=== PATIENT | female | born 1985 | race Caucasian/White ===

== ENCOUNTER 2018-09-20 19:00 | Emergency (ER) | payer OTHER, MEDICAID ==
[2018-09-20] MEDS ORDERED: Ketorolac 60 MG/2 ML SDV IM ONE (19:44)
--- NOTE | 2018-09-20 19:57 | EDM.PDOC ---
<Wily Nichole - Last Filed: 09/20/18 19:59> ED HPI GENERAL MEDICAL PROBLEM - General Chief Complaint: Back Pain or Injury Stated Complaint: PT HURT BACK Time Seen by Provider: 09/20/18 19:19 - History of Present Illness INITIAL COMMENTS - FREE TEXT/NARRATIVE: HISTORY AND PHYSICAL: History of present illness: 3-year-old female presents to the emergency department for the evaluation of the lower back pain. She has no significant history of back surgery or back pain. She reported she slipped at work and caught herself before she fell to the ground. She has noticed right lower back pain which radiates to her left lower back with activity. She denies any numbness or tingling to her legs. She has not lost bowel or bladder control. She denies any systemic condition such as fevers or chills or weight loss. She has attempted to treat her for a 4/10 sharp shooting back pain with warm soaks, ibuprofen & Salonpas. The patient is not anticoagulated nor did she hit her head. The patient denies urinary frequency urgency or dysuria. Review of systems: As per history of present illness and below otherwise all systems reviewed and negative. Past medical history: As per history of present illness and as reviewed below otherwise noncontributory. Surgical history: As per history of present illness and as reviewed below otherwise noncontributory. Social history: No reported history of drug or alcohol abuse. Family history: As per history of present illness and as reviewed below otherwise noncontributory. Physical exam: HEENT: Atraumatic, normocephalic, pupils reactive, negative for conjunctival pallor or scleral icterus, mucous membranes moist, throat clear, neck supple, nontender, trachea midline. Lungs: Clear to auscultation, breath sounds equal bilaterally, chest nontender. Heart: S1S2, regular, negative for clicks, rubs, or JVD. Abdomen: Soft, nondistended, nontender. Negative for masses or hepatosplenomegaly. Negative for costovertebral tenderness. Pelvis: Stable nontender. Genitourinary: Deferred. Rectal: Deferred. Extremities: Atraumatic, negative for cords or calf pain. Neurovascular unremarkable. Neuro: Awake, alert, oriented. Cranial nerves II through XII unremarkable. Cerebellum unremarkable. Motor and sensory unremarkable throughout. Exam nonfocal. Spine: Upon palpation to the patient's spine there is no bony step-offs or ridges. When palpating over the lower lumbar area the patient reports that she noticed her pain lateral to her lumbar spine area is not over the bony prominence. There is no obvious deformities or ecchymosis present. The patients lumbar pain is reproducible with a straight leg test. Diagnostics: 3 view lumbar xary [employer]rapeutics: Toradol Flexeril Impression: Lower lumbar strain Plan: At the present time it appears the patient has endured a lower lumbar strain. We have offered the patient's x-ray imaging of the lower back to ensure there is no fracture present. She is in agreement for x-ray films. She is to continue her pxua-dwj-wvrusgw treatment of ibuprofen warm packs and salon positive. He will be sent home with a prescription for Flexeril. She is to follow up with her primary care provider if her pain persists this. With the patient that she will need to contact her employer to determine if she needs to follow-up with occupational health. She will be given an excuse from for work one. Plan of care was reviewed with both the patient and her they are in agreement. All questions answered. Definitive disposition and diagnosis as appropriate pending reevaluation and review of above. 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: Musculoskeletal History: Reports: None Neurological History: Reports: None Psychiatric History: Reports: None Endocrine/Metabolic History: Reports: Diabetes, Gestational Hematologic History: Reports: None Immunologic History: Reports: None Oncologic (Cancer) History: Reports: None Dermatologic History: Reports: None - Infectious Disease History Infectious Disease History: Reports: Chicken Pox - Past Surgical History Head Surgeries/Procedures: Reports: None HEENT Surgical History: Reports: None Cardiovascular Surgical History: Reports: None Respiratory Surgical History: Reports: None GI Surgical History: Reports: Cholecystectomy Female Surgical History: Reports: Tubal Ligation Endocrine Surgical History: Reports: None Neurological Surgical History: Reports: None Musculoskeletal Surgical History: Reports: Amputation Oncologic Surgical History: Reports: None Dermatological Surgical History: Reports: None Social & Family History - Family History Psychiatric: Reports: Autism Endocrine/Metabolic: Reports: Diabetes, type II Oncologic: Reports: Ovarian, Uterine - Tobacco Use Smoking Status *Q: Never Smoker Second Hand Smoke Exposure: No - Caffeine Use Caffeine Use: Reports: Coffee - Recreational Drug Use Recreational Drug Use: No Course - Vital Signs Last Recorded V/S: Last Vital Signs Temp 36.1 C 09/20/18 19:13 Pulse 62 09/20/18 19:13 Resp 18 09/20/18 19:13 BP 131/62 09/20/18 19:13 Pulse Ox 98 09/20/18 19:13 - Orders/Labs/Meds Meds: Medications Discontinued Medications Generic Name Dose Route Start Last Admin Trade Name Freq PRN Reason Stop Dose Admin Ketorolac Tromethamine 60 mg 09/20/18 19:44 09/20/18 19:53 Toradol IM 09/20/18 19:45 60 mg ONETIME ONE Administration Orphenadrine Citrate 60 mg 09/20/18 19:44 09/20/18 19:56 Norflex IM 09/20/18 19:45 60 mg ONETIME ONE Administration Departure - Departure Disposition: Home, Self-Care 01 Clinical Impression: Lumbar back sprain Qualifiers: Encounter type: initial encounter Qualified Code(s): S33.5XXA - Sprain of ligaments of lumbar spine, initial encounter - Discharge Information Referrals: PCP,None [Primary Care Provider] - Forms: ED Department Discharge Additional Instructions: The following information is given to patients seen in the emergency department who are being discharged to home. This information is to outline your options for follow-up care. We provide all patients seen in our emergency department with a follow-up referral. The need for follow-up, as well as the timing and circumstances, are variable depending upon the specifics of your emergency department visit. If you don't have a primary care physician on staff, we will provide you with a referral. We always advise you to contact your personal physician following an emergency department visit to inform them of the circumstance of the visit and for follow-up with them and/or the need for any referrals to a consulting specialist. The emergency department will also refer you to a specialist when appropriate. This referral assures that you have the opportunity for followup care with a specialist. All of these measure are taken in an effort to provide you with optimal care, which includes your followup. Under all circumstances we always encourage you to contact your private physician who remains a resource for coordinating your care. When calling for followup care, please make the office aware that this follow-up is from your recent emergency room visit. If for any reason you are refused follow-up, please contact the [facility] emergency department at and ask to speak to the emergency department charge nurse. [facility] Primary care- [place] [address] Use ice to area for the next 24 hours and then switch to heat. Use over-the- counter Motrin/ibuprofen 600 mg every 6 hours or 800 mg every 8 hours and add the ulcer relaxer as you have been prescribed as needed. Please only take the muscle relaxers when you're at home as it may make you drowsy or sleepy. Please contact your employer for follow-up with occupational health as they dictate and return to ER as needed and as discussed. Follow up with your provider in the clinic as well. <Ness Montana - Last Filed: 09/20/18 20:59> ED HPI GENERAL MEDICAL PROBLEM - History of Present Illness INITIAL COMMENTS - FREE TEXT/NARRATIVE: This is Dr. Montana dictating an addendum note as I'm the supervising physician on this case. I agree with history and physical as above and the patient did not completely fall to the ground but twisted and caught herself. Her pain is localized on the right lumbar area and it does not radiate to her leg and she has no bowel or bladder disturbances. She has tried sjya-bbi-lbpymuy meds and is still concerned and as this occurred at work she has some concerns about that as well. She has a history of a bilateral tubal ligation. Clinically the patient does not mandate x-rays but because this occurred at work she would like to pursue those as a baseline and we have ordered them. This is all musculoskeletal on my exam as there is reproducible pain on palpation of the paraspinals of the lower lumbar area on the right area there are no midline step -offs tenderness defects of the thoracic or lumbar spine. We will give her Toradol and Flexeril and plan on treating with anti-inflammatories and muscle relaxers for home pending the x-ray results ED ROS GENERAL - Review of Systems Review Of Systems: ROS reveals no pertinent complaints other than HPI. ED EXAM,LOWER BACK PAIN/INJURY - Physical Exam Exam: See Below (See dictation) Departure - Departure Time of Disposition: 20:58 Condition: Good
--- NOTE | 2018-09-20 20:49 | CR ---
HISTORY: Pain after slipping and catching herself. COMPARISON: None available. FINDINGS: The lumbar spine was examined with AP, lateral, and lateral spot views for a total of three views. There is no sign of fracture or subluxation. The vertebral bodies are normal in height and they are in anatomic alignment. The disc spaces are normal in height as well. The visualized bony pelvis and bowel gas pattern are normal in appearance. Clips are seen in the right upper quadrant consistent with cholecystectomy. Clips are seen in the pelvis on the left consistent with tubal ligation. IMPRESSION: Normal lumbar spine. Dictated by Panchito Nguyen MD @ Sep 20 2018 8:46PM Signed by Dr. Panchito Nguyen @ Sep 20 2018 8:48PM
[2018-09-20 22:32] VITALS: BP 105/63
== END 2018-09-20 21:10 | disposition home or self-care (01) ==
LOC: MW.ED 19:00
DX: S33.5XXA Sprain of ligaments of lumbar spine, initial encounter (principal); S39.012A Strain of muscle, fascia and tendon of lower back, initial encounter; Z88.6 Allergy status to analgesic agent; Z79.899 Other long term (current) drug therapy; W01.0XXA Fall on same level from slipping, tripping and stumbling without subsequent striking against object, initial encounter
CPT/HCPCS: 72100; 96372; 99283; J1885; J2360

== ENCOUNTER 2019-03-02 19:42 | Emergency (ER) | payer MEDICAID, OTHER ==
[2019-03-02] MEDS ORDERED: Acetaminophen 325 MG Tab PO ONE (20:36)
[2019-03-02] MEDS ORDERED: Ondansetron 4 MG/2 ML SDV IVPUSH ONE ×2 (20:36→23:00)
[2019-03-02] MEDS ORDERED: Morphine 10 MG/ML Syringe IVPUSH ONE (21:02)
[2019-03-02 21:33] LABS: BLOOD UREA NITROGEN,BUN 15 mg/dL (7.0-18.0); CARBON DIOXIDE,CO2 24.9 mmol/L (21.0-32.0); CHLORIDE,CL 104 mmol/L (98-107); GLUCOSE RANDOM 94 mg/dL (74-106); POTASSIUM,K 3.8 mmol/L (3.5-5.1); SODIUM,NA 140 mmol/L (136-145)
--- NOTE | 2019-03-02 21:33 | EDM.PDOC ---
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 Presents with chief complaint of right lower quadrant abdominal pain. Onset of pain was last night when the pain started abruptly and woke her from sleep. Pain has been consistent since then and has not fluctuated in intensity. Patient reports associated nausea but no vomiting. Patient has decreased appetite and is only in several breadsticks around dinnertime today. Patient denies any fevers, chills, diarrhea, urinary symptoms. Patient denies any prior history of ovarian cyst. Patient denies any complication of pregnancies. Patient last was several years ago. Patient denies any vaginal discharge or vaginal bleeding. Patient states last menstrual period was beginning of January. In addition to that documented in the HPI above, the additional ROS was obtained : Constitutional: Denies fevers or chills Eyes: Denies vision changes ENMT: Denies sore throat CV: Denies chest pain Resp: Denies SOB GI: Denies vomiting or diarrhea : Denies painful urination MSK: Denies recent trauma Skin: Denies new rashes Neuro: Denies new numbness or tingling or weakness Endocrine: Denies unexpected weight loss Heme: Denies bleeding disorders I have reviewed the triage vital signs Const: Well nourished, well developed, appears stated age Eyes: PERRL, no conjunctival injection HENT: NCAT, Neck supple without meningismus CV: RRR, Warm, well-perfused extremities RESP: CTAB, Unlabored respiratory effort GI: Tenderness to palpation of the right lower quadrant, no guarding, soft abdomen, non-distended, no masses MSK: No gross deformities appreciated : BHAVANA Moreira present for exam. External exam within normal limits. Internal exam demonstrates no discharge. Cervical loss is closed. Patient has no CMT or adnexal tenderness Skin: Warm, dry. 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 Sensation and motor function of extremities grossly intact. 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 History: Reports: None Neurological History: Reports: None Psychiatric History: Reports: None Endocrine/Metabolic History: Reports: Diabetes, Gestational Hematologic History: Reports: None Immunologic History: Reports: None Oncologic (Cancer) History: Reports: None Dermatologic History: Reports: None - Infectious Disease History Infectious Disease History: Reports: Chicken Pox - Past Surgical History Head Surgeries/Procedures: Reports: None HEENT Surgical History: Reports: None Cardiovascular Surgical History: Reports: None Respiratory Surgical History: Reports: None GI Surgical History: Reports: Cholecystectomy Female Surgical History: Reports: Tubal Ligation Endocrine Surgical History: Reports: None Neurological Surgical History: Reports: None Musculoskeletal Surgical History: Reports: Amputation Oncologic Surgical History: Reports: None Dermatological Surgical History: Reports: None Social & Family History - Family History Family Medical History: Noncontributory Psychiatric: Reports: Autism Endocrine/Metabolic: Reports: Diabetes, type II Oncologic: Reports: Ovarian, Uterine - Tobacco Use Smoking Status *Q: Never Smoker - Caffeine Use Caffeine Use: Reports: Coffee - Recreational Drug Use Recreational Drug Use: No ED ROS GENERAL - Review of Systems Review Of Systems: See Below ED EXAM, GI/ABD - Physical Exam Exam: See Below Course - Vital Signs Last Recorded V/S: Last Vital Signs Temp 36.2 C 03/02/19 19:59 Pulse 62 03/03/19 00:23 Resp 16 03/03/19 00:23 BP 124/77 03/03/19 00:23 Pulse Ox 99 03/03/19 00:23 - Orders/Labs/Meds Orders: Active Orders 24 hr Category Date Time Status CHLAMYDIA AND GONORRHEA BY TMA Stat Lab 03/03/19 00:25 Received Labs: Laboratory Tests 03/02/19 03/02/19 03/02/19 Range/Units 20:44 21:00 21:00 WBC 10.09 (4.0-11.0) K/uL RBC 4.83 (4.30-5.90) M/uL Hgb 13.7 (12.0-16.0) g/dL Hct 40.0 (36.0-46.0) % MCV 82.8 (80.0-98.0) fL MCH 28.4 (27.0-32.0) pg MCHC 34.3 (31.0-37.0) g/dL RDW Std Deviation 42.7 (28.0-62.0) fl RDW Coeff of Sana 14 (11.0-15.0) % Plt Count 311 (150-400) K/uL MPV 10.00 (7.40-12.00) fL Neut % (Auto) 65.8 (48.0-80.0) % Lymph % (Auto) 25.5 (16.0-40.0) % [place] % (Auto) 7.6 (0.0-15.0) % Eos % (Auto) 1.0 (0.0-7.0) % Baso % (Auto) 0.1 (0.0-1.5) % Neut # (Auto) 6.6 H (1.4-5.7) K/uL Lymph # (Auto) 2.6 H (0.6-2.4) K/uL [place] # (Auto) 0.8 (0.0-0.8) K/uL Eos # (Auto) 0.1 (0.0-0.7) K/uL Baso # (Auto) 0.0 (0.0-0.1) K/uL Nucleated RBC % 0.0 /100WBC Nucleated RBCs # 0 K/uL Sodium 140 (136-145) mmol/L Potassium 3.8 (3.5-5.1) mmol/L Chloride 104 (98-107) mmol/L Carbon Dioxide 24.9 (21.0-32.0) mmol/L BUN 15 (7.0-18.0) mg/dL Creatinine 0.8 (0.6-1.0) mg/dL Est Cr Clr Drug Dosing 92.76 mL/min Estimated GFR (MDRD) > 60.0 ml/min Glucose 94 (74-106) mg/dL Calcium 9.3 (8.5-10.1) mg/dL Total Bilirubin 0.4 (0.2-1.0) mg/dL AST 26 (15-37) IU/L ALT 37 (14-63) IU/L Alkaline Phosphatase 69 (46-116) U/L Total Protein 8.2 (6.4-8.2) g/dL Albumin 4.0 (3.4-5.0) g/dL Globulin 4.2 H (2.6-4.0) g/dL Albumin/Globulin Ratio 1.0 (0.9-1.6) HCG, Quant 1.0 mIU/mL Urine Color YELLOW Urine Appearance SLT CLOUDY Urine pH 6.5 (5.0-8.0) Ur Specific [place] >= 1.030 (1.001-1.035) Urine Protein NEGATIVE (NEGATIVE) mg/dL Urine Glucose (UA) NEGATIVE (NEGATIVE) mg/dL Urine Ketones NEGATIVE (NEGATIVE) mg/dL Urine Occult Blood NEGATIVE (NEGATIVE) Urine Nitrite NEGATIVE (NEGATIVE) Urine Bilirubin NEGATIVE (NEGATIVE) Urine Urobilinogen 0.2 (<2.0) EU/dL Ur Leukocyte Esterase NEGATIVE (NEGATIVE) Meds: Medications Discontinued Medications Generic Name Dose Route Start Last Admin Trade Name Erica PRN Reason Stop Dose Admin Acetaminophen 650 mg 03/02/19 20:36 03/02/19 21:14 Tylenol PO 03/02/19 20:37 Not Given NOW ONE Ketorolac Tromethamine 15 mg 03/03/19 00:34 Toradol IVPUSH 03/03/19 00:35 ONETIME ONE Morphine Sulfate 6 mg 03/02/19 21:02 03/02/19 21:11 Morphine IVPUSH 03/02/19 21:03 6 mg ONETIME ONE Administration Ondansetron HCl 4 mg 03/02/19 20:36 03/02/19 21:08 Zofran IVPUSH 03/02/19 20:37 4 mg ONETIME ONE Administration Ondansetron HCl 4 mg 03/02/19 23:00 03/02/19 23:07 Zofran IVPUSH 03/02/19 23:01 4 mg ONETIME ONE Administration Departure - Departure Time of Disposition: 00:39 Disposition: Home, Self-Care 01 Clinical Impression: Pain in pelvis - Discharge Information Prescriptions: Naproxen [Naprosyn] 375 mg PO BID #30 tab Instructions: Pelvic Pain, Female, Malb-ye-Bwmw Referrals: Maria Fernanda Farris NP [Primary Care Provider] - Forms: ED Department Discharge Additional Instructions: The following information is given to patients seen in the emergency department who are being discharged to home. This information is to outline your options for follow-up care. We provide all patients seen in our emergency department with a follow-up referral. The need for follow-up, as well as the timing and circumstances, are variable depending upon the specifics of your emergency department visit. If you don't have a primary care physician on staff, we will provide you with a referral. We always advise you to contact your personal physician following an emergency department visit to inform them of the circumstance of the visit and for follow-up with them and/or the need for any referrals to a consulting specialist. The emergency department will also refer you to a specialist when appropriate. This referral assures that you have the opportunity for follow-up care with a specialist. All of these measure are taken in an effort to provide you with optimal care, which includes your follow-up. Under all circumstances we always encourage you to contact your private physician who remains a resource for coordinating your care. When calling for follow-up care, please make the office aware that this follow-up is from your recent emergency room visit. If for any reason you are refused follow-up, please contact the [facility] Emergency Department at and asked to speak to the emergency department charge nurse. Sepsis Event Note - Evaluation Sepsis Screening Result: No Definite Risk - Focused Exam Vital Signs: Vital Signs Temp Pulse Resp BP Pulse Ox 03/03/19 00:23 62 16 124/77 99 03/02/19 23:00 63 18 115/63 98 03/02/19 22:00 63 16 116/69 99 03/02/19 21:14 60 18 121/76 98 03/02/19 19:59 36.2 C 65 20 147/77 H 97 Date Exam was Performed: 03/03/19 Time Exam was Performed: 00:37 - My Orders Last 24 Hours: My Active Orders 03/03/19 00:25 CHLAMYDIA AND GONORRHEA BY TMA Stat - Assessment/Plan Last 24 Hours: My Active Orders 03/03/19 00:25 CHLAMYDIA AND GONORRHEA BY TMA Stat Assessment:: She is 34-year-old female presenting with right lower quadrant abdominal pain. Patient pelvic exam not consistent with ovarian pathology or HUMAN PROJECTILE pathology at this time. Urine studies are negative for infection. CBC does not demonstrate leukocytosis. However, given the intensity of the patient's pain and the location of the right lower quadrant there is concern about appendicitis. Ever , the CT scan is negative. On my examination CT scan there does demonstrate some pelvic congestion. Ultrasound was ordered and only demonstrates thickening of the endometrial lining. Based on physical exam and history of the patient, there is no concern for sexually transmitted infection or endometritis. A GC test was sent for thoroughness sake. At this point, I think that diagnosis may be endometrial fibroids versus other uterine nonemergent diagnosis. Patient educated on pain control with NSAIDs. 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 I stressed the importance of repeating the ultrasound in the next several weeks. Patient given strict return precautions all questions and addressed and answered and patient agrees with plan
[2019-03-02] MEDS ORDERED: Iopamidol 755 MG/ML 500 ML Multipack Bottle IVPUSH ONE (21:40)
--- NOTE | 2019-03-02 22:32 | CT ---
Indication: Right lower quadrant abdominal pain Technique: Contrast enhanced axial CT imaging through the abdomen and pelvis. 100 mL Isovue 370 contrast agent was administered intravenously. Sagittal and coronal reconstructions are provided. Comparison: None Findings: There is no significant abnormality of the liver, spleen, pancreas, adrenal glands, and kidneys. Cholecystectomy clips are noted. There is normal enhancement of the portal venous system. There is normal caliber of the abdominal aorta. The stomach and duodenum are unremarkable. There are no abnormally dilated small bowel loops. The appendix is noninflamed. There is no colonic wall thickening. No inflammatory changes are demonstrated in the mesentery. There is no abdominal lymphadenopathy. A small amount of nonspecific free fluid is noted in the pelvis. The visualized osseous structures are unremarkable. The included lung bases are clear. Impression: No acute process demonstrated in the abdomen and pelvis. No evidence of acute appendicitis. Please note that all CT scans at this facility use dose modulation, iterative reconstruction, and/or weight-based dosing when appropriate to reduce radiation dose to as low as reasonably achievable. Dictated by Cathie Dowell MD @ Mar 02 2019 10:22PM Signed by Dr. Cathie Dowell @ Mar 02 2019 10:30PM
--- NOTE | 2019-03-03 00:07 | US ---
INDICATION: Right lower quadrant pain TECHNIQUE: Ultrasound pelvis transabdominal and transvaginal. Endovaginal imaging was performed to better visualize the endometrium and ovaries. Real-time hurtado scale sonographic images with spectral and color Doppler imaging of the ovaries were obtained. COMPARISON: CT today FINDINGS: Uterus: 8.9 x 5.3 x 6.6 cm. Trace fluid is present within the uterine cavity. Normal echotexture of the myometrium noted with no masses are seen. Endometrium: 18 mm. A small nabothian cyst is present near the cervix. Right ovary: 3 x 2.3 x 2 cm. A thick walled cyst is present within the right ovary measuring 1 x 1.5 cm. Unremarkable color and venous flow is seen within the right ovary. Left ovary: 3 x 1.9 x 2 cm. The left ovary is normal in appearance and echotexture. Arterial blood flow seen within the left ovary. Cul-de-sac: A small amount of pelvic ascites is seen. IMPRESSION: 1. Lobulated thickening of the endometrium is present with a small amount of fluid in the uterine cavity. Findings are nonspecific and follow-up ultrasound in 3-4 weeks is recommended to document resolution. Dictated by Jimi Jenkins MD @ 03/03/2019 12:05:10 AM Dictated by: Jimi Jenkins MD @ 03/03/2019 00:05:16 (Electronically Signed)
[2019-03-03] MEDS ORDERED: Ketorolac 30 MG/ML SDV IVPUSH ONE (00:34)
[2019-03-03 00:43] VITALS: BP 145/99; PULSE 67
== END 2019-03-03 01:00 | disposition home or self-care (01) ==
LOC: MW.ED 19:42
DX: R10.2 Pelvic and perineal pain (principal); Z90.49 Acquired absence of other specified parts of digestive tract; Z88.6 Allergy status to analgesic agent; Z98.51 Tubal ligation status
CPT/HCPCS: 36415; 74177; 76856; 80053; 81003; 84702; 85025; 87491; 87591; 96374; 96375; 96376; 99284; J1885; J2270; J2405; 99283

== ENCOUNTER 2020-03-09 04:05 | Emergency (ER) | payer MEDICAID ==
[2020-03-09] MEDS ORDERED: Ketorolac 15 MG/ML SDV IVPUSH ONE (04:28)
--- NOTE | 2020-03-09 04:34 | EDM.PDOC ---
ED HPI GENERAL MEDICAL PROBLEM - General Chief Complaint: Abdominal Pain Stated Complaint: RIGHT OVARIAN CYST- SHOOTING PAIN Time Seen by Provider: 03/09/20 04:17 Source of Information: Reports: Patient History Limitations: Reports: No Limitations - History of Present Illness INITIAL COMMENTS - FREE TEXT/NARRATIVE: She is a 35-year-old female who presents today for right lower quadrant pain. Patient states pain has been present for the past 2 weeks. Patient states she has a history of cyst and feels similar to that pain. Patient states she came in today because she woke up from sleep with this intense pain shooting down to her leg. Patient has some nausea but still able tolerate p.o. patient denies any urinary symptoms or diarrhea. Patient states pain is not made better with any event and is made worse when she applies ice then heat and vice versa. 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 History: Reports: None Neurological History: Reports: None Psychiatric History: Reports: None Endocrine/Metabolic History: Reports: Diabetes, Gestational Hematologic History: Reports: None Immunologic History: Reports: None Oncologic (Cancer) History: Reports: None Dermatologic History: Reports: None - Infectious Disease History Infectious Disease History: Reports: Chicken Pox - Past Surgical History Head Surgeries/Procedures: Reports: None HEENT Surgical History: Reports: None Cardiovascular Surgical History: Reports: None Respiratory Surgical History: Reports: None GI Surgical History: Reports: Cholecystectomy Female Surgical History: Reports: Tubal Ligation Endocrine Surgical History: Reports: None Neurological Surgical History: Reports: None Musculoskeletal Surgical History: Reports: Amputation Oncologic Surgical History: Reports: None Dermatological Surgical History: Reports: None Social & Family History - Family History Family Medical History: No Pertinent Family History Psychiatric: Reports: Autism Endocrine/Metabolic: Reports: Diabetes, type II Oncologic: Reports: Ovarian, Uterine - Tobacco Use Tobacco Use Status *Q: Never Tobacco User - Caffeine Use Caffeine Use: Reports: None - Recreational Drug Use Recreational Drug Use: No ED ROS GENERAL - Review of Systems Review Of Systems: See Below Constitutional: Reports: No Symptoms HEENT: Reports: No Symptoms Respiratory: Reports: No Symptoms Cardiovascular: Reports: No Symptoms Endocrine: Reports: No Symptoms GI/Abdominal: Reports: Abdominal Pain : Reports: No Symptoms Musculoskeletal: Reports: No Symptoms Skin: Reports: No Symptoms Neurological: Reports: No Symptoms Psychiatric: Reports: No Symptoms Hematologic/Lymphatic: Reports: No Symptoms Immunologic: Reports: No Symptoms ED EXAM, GENERAL - Physical Exam Exam: See Below Exam Limited By: No Limitations General Appearance: Alert Respiratory/Chest: No Respiratory Distress, Lungs Clear Cardiovascular: Regular Rate, Rhythm GI/Abdominal: Normal Bowel Sounds, Soft, No Organomegaly, Tender Neurological: Alert, Oriented, Normal Cognition Course - Vital Signs Last Recorded V/S: Last Vital Signs Temp 96.5 F L 03/09/20 04:10 Pulse 60 03/09/20 05:25 Resp 18 03/09/20 05:25 BP 119/62 03/09/20 05:25 Pulse Ox 96 03/09/20 05:25 - Orders/Labs/Meds Labs: Laboratory Tests 03/09/20 03/09/20 03/09/20 Range/Units 04:20 04:20 05:10 WBC 12.24 H (4.0-11.0) K/uL RBC 4.84 (4.30-5.90) M/uL Hgb 13.1 (12.0-16.0) g/dL Hct 40.2 (36.0-46.0) % MCV 83.1 (80.0-98.0) fL MCH 27.1 (27.0-32.0) pg MCHC 32.6 (31.0-37.0) g/dL RDW Std Deviation 44.8 (28.0-62.0) fl RDW Coeff of Sana 15 (11.0-15.0) % Plt Count 382 (150-400) K/uL MPV 10.00 (7.40-12.00) fL Neut % (Auto) 69.9 (48.0-80.0) % Lymph % (Auto) 23.2 (16.0-40.0) % [place] % (Auto) 5.6 (0.0-15.0) % Eos % (Auto) 1.1 (0.0-7.0) % Baso % (Auto) 0.2 (0.0-1.5) % Neut # (Auto) 8.6 H (1.4-5.7) K/uL Lymph # (Auto) 2.8 H (0.6-2.4) K/uL [place] # (Auto) 0.7 (0.0-0.8) K/uL Eos # (Auto) 0.1 (0.0-0.7) K/uL Baso # (Auto) 0.0 (0.0-0.1) K/uL Nucleated RBC % 0.0 /100WBC Nucleated RBCs # 0 K/uL Sodium 135 L (136-145) mmol/L Potassium 3.6 (3.5-5.1) mmol/L Chloride 100 (98-107) mmol/L Carbon Dioxide 22.1 (21.0-32.0) mmol/L BUN 13 (7.0-18.0) mg/dL Creatinine 1.0 (0.6-1.0) mg/dL Est Cr Clr Drug Dosing 73.51 mL/min Estimated GFR (MDRD) > 60.0 ml/min Glucose 96 (74-106) mg/dL Calcium 9.3 (8.5-10.1) mg/dL Total Bilirubin 0.4 (0.2-1.0) mg/dL AST 17 (15-37) IU/L ALT 29 (14-63) IU/L Alkaline Phosphatase 85 (46-116) U/L Total Protein 8.4 H (6.4-8.2) g/dL Albumin 3.9 (3.4-5.0) g/dL Globulin 4.5 H (2.6-4.0) g/dL Albumin/Globulin Ratio 0.9 (0.9-1.6) Lipase 126 (73-393) U/L Urine Color YELLOW Urine Appearance SLT CLOUDY Urine pH 5.5 (5.0-8.0) Ur Specific [place] 1.015 (1.001-1.035) Urine Protein NEGATIVE (NEGATIVE) mg/dL Urine Glucose (UA) NEGATIVE (NEGATIVE) mg/dL Urine Ketones NEGATIVE (NEGATIVE) mg/dL Urine Occult Blood TRACE-LYSED H (NEGATIVE) Urine Nitrite NEGATIVE (NEGATIVE) Urine Bilirubin NEGATIVE (NEGATIVE) Urine Urobilinogen 0.2 (<2.0) EU/dL Ur Leukocyte Esterase SMALL H (NEGATIVE) Urine RBC 0-3 (0-2/HPF) Urine WBC 1-4 (0-5/HPF) Ur Epithelial Cells FEW (NONE-FEW) Urine Bacteria FEW (NEGATIVE) Urine Mucus LIGHT (NONE-MOD) Urine HCG, Qual (NEGATIVE) 03/09/20 Range/Units 05:26 WBC (4.0-11.0) K/uL RBC (4.30-5.90) M/uL Hgb (12.0-16.0) g/dL Hct (36.0-46.0) % MCV (80.0-98.0) fL MCH (27.0-32.0) pg MCHC (31.0-37.0) g/dL RDW Std Deviation (28.0-62.0) fl RDW Coeff of Sana (11.0-15.0) % Plt Count (150-400) K/uL MPV (7.40-12.00) fL Neut % (Auto) (48.0-80.0) % Lymph % (Auto) (16.0-40.0) % [place] % (Auto) (0.0-15.0) % Eos % (Auto) (0.0-7.0) % Baso % (Auto) (0.0-1.5) % Neut # (Auto) (1.4-5.7) K/uL Lymph # (Auto) (0.6-2.4) K/uL [place] # (Auto) (0.0-0.8) K/uL Eos # (Auto) (0.0-0.7) K/uL Baso # (Auto) (0.0-0.1) K/uL Nucleated RBC % /100WBC Nucleated RBCs # K/uL Sodium (136-145) mmol/L Potassium (3.5-5.1) mmol/L Chloride (98-107) mmol/L Carbon Dioxide (21.0-32.0) mmol/L BUN (7.0-18.0) mg/dL Creatinine (0.6-1.0) mg/dL Est Cr Clr Drug Dosing mL/min Estimated GFR (MDRD) ml/min Glucose (74-106) mg/dL Calcium (8.5-10.1) mg/dL Total Bilirubin (0.2-1.0) mg/dL AST (15-37) IU/L ALT (14-63) IU/L Alkaline Phosphatase (46-116) U/L Total Protein (6.4-8.2) g/dL Albumin (3.4-5.0) g/dL Globulin (2.6-4.0) g/dL Albumin/Globulin Ratio (0.9-1.6) Lipase (73-393) U/L Urine Color Urine Appearance Urine pH (5.0-8.0) Ur Specific [place] (1.001-1.035) Urine Protein (NEGATIVE) mg/dL Urine Glucose (UA) (NEGATIVE) mg/dL Urine Ketones (NEGATIVE) mg/dL Urine Occult Blood (NEGATIVE) Urine Nitrite (NEGATIVE) Urine Bilirubin (NEGATIVE) Urine Urobilinogen (<2.0) EU/dL Ur Leukocyte Esterase (NEGATIVE) Urine RBC (0-2/HPF) Urine WBC (0-5/HPF) Ur Epithelial Cells (NONE-FEW) Urine Bacteria (NEGATIVE) Urine Mucus (NONE-MOD) Urine HCG, Qual NEGATIVE (NEGATIVE) Meds: Medications Discontinued Medications Generic Name Dose Route Start Last Admin Trade Name Freq PRN Reason Stop Dose Admin Iopamidol 100 ml 03/09/20 05:16 03/09/20 05:16 Isovue Multipack-370 (76%) IVPUSH 03/09/20 05:17 100 ml ONETIME STA Administration Ketorolac Tromethamine 15 mg 03/09/20 04:28 03/09/20 04:37 Toradol IVPUSH 03/09/20 04:29 15 mg ONETIME ONE Administration - Re-Assessments/Exams Free Text/Narrative Re-Assessment/Exam: 03/09/20 06:18 Patient scan is negative does not show any concerning findings or cause of patient's pain. At the receiving Toradol patient pain is improved patient will be discharged home can follow-up with primary physician as outpatient. Departure - Departure Time of Disposition: 06:19 Disposition: Home, Self-Care 01 Condition: Good Clinical Impression: Abdominal pain - Discharge Information *PRESCRIPTION DRUG MONITORING PROGRAM REVIEWED*: Not Applicable *COPY OF PRESCRIPTION DRUG MONITORING REPORT IN PATIENT VIRGIL: Not Applicable Instructions: Abdominal Pain, Adult, [id number] Referrals: Brenton,Maria Fernanda A, MARKETING SUPPORT SPECIALIST [Primary Care Provider] - Forms: ED Department Discharge Additional Instructions: The following information is given to patients seen in the emergency department who are being discharged to home. This information is to outline your options for follow-up care. We provide all patients seen in our emergency department with a follow-up referral. The need for follow-up, as well as the timing and circumstances, are variable depending upon the specifics of your emergency department visit. If you don't have a primary care physician on staff, we will provide you with a referral. We always advise you to contact your personal physician following an emergency department visit to inform them of the circumstance of the visit and for follow-up with them and/or the need for any referrals to a consulting specialist. The emergency department will also refer you to a specialist when appropriate. This referral assures that you have the opportunity for follow-up care with a specialist. All of these measure are taken in an effort to provide you with optimal care, which includes your follow-up. Under all circumstances we always encourage you to contact your private physician who remains a resource for coordinating your care. When calling for follow-up care, please make the office aware that this follow-up is from your recent emergency room visit. If for any reason you are refused follow-up, please contact the [facility] Emergency Department at and asked to speak to the emergency department charge nurse. Please follow up with your primary care physician. If you do not have a primary care physician, see below: [facility] [address] [place] [id number] [facility] [address] [place] [id number] Please follow-up with your primary care physician if you have any increased pain nausea vomiting please return to the emergency department. Sepsis Event Note (ED) - Evaluation Sepsis Screening Result: No Definite Risk - Focused Exam Vital Signs: Vital Signs Temp Pulse Resp BP Pulse Ox 03/09/20 05:25 60 18 119/62 96 03/09/20 04:10 96.5 F L 64 18 143/55 H 98 - Assessment/Plan Assessment:: Patient is a 35-year-old female who presents today for right lower quadrant pain. Patient has some pain on examination. Patient also has pain with flexion of the right hip. There is concern for appendicitis. Will obtain labs UA and provide pain control.
[2020-03-09 04:55] LABS: BLOOD UREA NITROGEN,BUN 13 mg/dL (7.0-18.0); CARBON DIOXIDE,CO2 22.1 mmol/L (21.0-32.0); CHLORIDE,CL 100 mmol/L (98-107); GLUCOSE RANDOM 96 mg/dL (74-106); LIPASE 126 U/L (73-393); POTASSIUM,K 3.6 mmol/L (3.5-5.1); SODIUM,NA 135 mmol/L (136-145)
[2020-03-09] MEDS ORDERED: Iopamidol 755 MG/ML 500 ML Multipack Bottle IVPUSH STA (05:16)
[2020-03-09 05:26] VITALS: PULSE 60
--- NOTE | 2020-03-09 06:02 | CT ---
INDICATION: Right lower quadrant pain COMPARISON: March 02, 2019 TECHNIQUE: CT examination of the abdomen and pelvis was performed following the uneventful intravenous administration of 100 cc of Isovue 370. Thin section axial images were obtained from the lung bases through the pubic symphysis. Oral contrast was not administered. Please note that all CT scans at this facility use dose modulation, iterative reconstruction, and/or weight-based dosing when appropriate to reduce radiation dose to as low as reasonably achievable. FINDINGS: LUNG BASES: The lung bases as visualized appear normal.The heart size is normal at the lung bases. LIVER/BILIARY SYSTEM:The liver is normal in size and configuration. There is no focal mass and there is no intra- or extra hepatic biliary ductal dilatation.Gallbladder surgically absent ADRENALS: Normal KIDNEYS, URETERS and BLADDER:The kidneys appear normal. No visible mass, calculus or hydronephrosis. The ureters and bladder as visualized appear normal. SPLEEN:Normal appearance. PANCREAS: Appears normal. RETROPERITONEUM and MESENTERY: There is no mass, adenopathy or aortic aneurysm. GASTROINTESTINAL SYSTEM: There is no evidence of diverticulitis, colitis, mechanical obstruction, or appendicitis. The small bowel as visualized appears normal.No visible etiology for right lower quadrant abdominal pain. PELVIS: No mass, adenopathy or free fluid.Tubal ligation clips identified bilaterally OSSEOUS STRUCTURES and ABDOMINAL WALL: There is an age-appropriate appearance of the osseous structures.No significant abdominal wall defect. OTHER: No free fluid or free air. IMPRESSION: No visible etiology for right lower quadrant abdominal pain. Please note that all CT scans at this facility use dose modulation, iterative reconstruction, and/or weight-based dosing when appropriate to reduce radiation dose to as low as reasonably achievable. Dictated by Leo Sharpe MD @ Mar 09 2020 5:55AM Signed by Dr. Leo Sharpe @ Mar 09 2020 6:00AM
[2020-03-09 06:32] VITALS: BP 103/60
== END 2020-03-09 06:30 | disposition home or self-care (01) ==
LOC: MW.ED 04:05
DX: R10.31 Right lower quadrant pain (principal); Z88.6 Allergy status to analgesic agent
CPT/HCPCS: 36415; 74177; 80053; 81001; 81025; 83690; 85025; 96374; 99284; J1885; Q9967

== ENCOUNTER 2021-02-27 15:31 | Emergency (ER) | payer MEDICAID, OTHER ==
--- NOTE | 2021-02-27 15:33 | EDM.PDOC ---
ED HPI GENERAL MEDICAL PROBLEM - General Stated Complaint: MIGHT HAVE STREP THROAT Time Seen by Provider: 02/27/21 15:31 Source of Information: Reports: Patient History Limitations: Reports: No Limitations - History of Present Illness INITIAL COMMENTS - FREE TEXT/NARRATIVE: HISTORY AND PHYSICAL: History of present illness: The patient is a 36-year-old female who reports to the emergency department for complaints of fever, headache, sore throat and body aches that started yesterday. She did not take anything pwdy-[id number] to treat her discomfort. Patient states that her max fever was 100 F. Patient denies any chills, change in vision, syncope or near syncope. Denies any chest pain, back pain, shortness of breath or cough. Denies any abdominal pain, nausea, vomiting, diarrhea, constipation or dysuria. Has not noted any blood in urine or stool. Patient has been eating and drinking appropriately. Review of systems: As per history of present illness and below otherwise all systems reviewed and negative. Past medical history: As per history of present illness and as reviewed below otherwise noncontributory. Surgical history: As per history of present illness and as reviewed below otherwise noncontributory. Social history: See social history for further information Family history: As per history of present illness and as reviewed below otherwise noncontributory. Physical exam: General: Well developed and well nourished. Alert and orientated x 3. Nontoxic in appearance and in no acute distress. Vital signs are stable and have been reviewed by me. Nursing notes were reviewed. HEENT: Atraumatic, normocephalic, pupils equal and reactive bilaterally, negative for conjunctival pallor or scleral icterus, mucous membranes moist, TMs normal bilaterally, tonsils 1+, neck supple, nontender, trachea midline. No drooling or trismus noted. No meningeal signs. No hot potato voice noted. Lungs: Clear to auscultation bilaterally. No wheezes, rales, or rhonchi. Chest nontender. Normal work of breathing, no accessory muscles used. Heart: S1S2, regular rate and rhythm without overt murmur, gallops, or rubs. No JVD. No peripheral edema Abdomen: Soft, nondistended, nontender. Normoactive bowel sounds. Negative for masses or costovertebral tenderness. Skin: Intact, warm, dry. No lesions or rashes noted. Hematologic: No petechiae or purpra. Mucosa appropriate color and normal nail bed color and refill. Extremities: Atraumatic, moves all extremities per self without difficulty or deficits, negative for cords or calf pain. Neurovascular unremarkable. Neuro: Awake, alert, oriented. Cranial nerves II through XII unremarkable. Cerebellum unremarkable. Motor and sensory unremarkable throughout. Exam nonfocal. Psychiatric: Mood and affect are appropriate. Normal thought process. Answering questions appropriately. Notes: *This patient was seen and evaluated during the 2019 SARS-CoV-2 novel coronavirus pandemic period. Community viral transmission is ongoing at time of this encounter and the emergency department is operating under pandemic response procedures. As stated above the patient is a 36-year-old female who presents to the emergency department with complaints of fever, headache, sore throat, and body aches that started yesterday. We will obtain a strep swab and if this is negative we will then obtain a COVID-19 swab as per the patient's wishes. The patient's strep was negative. I informed the patient and she agreed to a flu/COVID-19 swab. The patient's flu/COVID-19 swab was negative. The patient most likely has viral pharyngitis. I educated the patient on [id number] uses for her sore throat and to allow the fever to happen if she could tolerate it. The patient is agreeable with this discharge plan. I have talked with the patient about today's findings, in addition to providing specific details for plan of care. Reassessment at the time of disposition demonstrates that the patient is in no acute distress. The patient is stable for discharge, counseling was provided and we discussed in great detail signs and symptoms that would prompt them to return to the Emergency Department. Medication, follow up and supportive care measures were reviewed and discussed. Voices understanding and is agreeable to plan of care. Denies any further questions or concerns at this time. Diagnostics: Strep swab, flu/COVID-19 swab Impression: Viral pharyngitis Plan: 1. You were evaluated today on an emergent basis. Your complaints of a sore throat was evaluated with a strep swab which was negative. We then did a Covid/flu swab which was also negative. You most likely have a viral pharyngitis. You can treat your sore throat with tqfh-bse-nrswifs remedies such as throat spray, lozenges, or tea with honey. As we talked about if you do develop a fever and can tolerate and allow your body to have the fever as this is fighting the viral illness. If you get to where you get a hoarse hot potato voice or you develop shortness of breath or your symptoms become worse please return to the emergency department. 2. You can alternate Tylenol and ibuprofen as needed for pain and fever management. 3. We encourage you to follow up with your primary care provider and/or recommended specialist in the next few days for re-evaluation and further care/management. 4. If your symptoms should worsen, new symptoms develop or any of the signs and symptoms we discussed should arise please return to the emergency room or call 911 (if needed). Definitive disposition and diagnosis as appropriate pending reevaluation and review of above. Throat Pain Score (Numeric/FACES): 5 - Related Data Allergies Allergy/AdvReac Type Severity Reaction Status Date / Time aspirin Allergy Nausea Verified 02/27/21 15:38 Home Meds: Home Meds . 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 Neurological History: Reports: None Psychiatric History: Reports: None Endocrine/Metabolic History: Reports: Diabetes, Gestational Hematologic History: Reports: None Immunologic History: Reports: None Oncologic (Cancer) History: Reports: None Dermatologic History: Reports: None - Infectious Disease History Infectious Disease History: Reports: Chicken Pox - Past Surgical History Head Surgeries/Procedures: Reports: None HEENT Surgical History: Reports: None Cardiovascular Surgical History: Reports: None Respiratory Surgical History: Reports: None GI Surgical History: Reports: Cholecystectomy Female Surgical History: Reports: Tubal Ligation Endocrine Surgical History: Reports: None Neurological Surgical History: Reports: None Musculoskeletal Surgical History: Reports: Amputation Oncologic Surgical History: Reports: None Dermatological Surgical History: Reports: None Social & Family History - Family History Family Medical History: No Pertinent Family History Psychiatric: Reports: Autism Endocrine/Metabolic: Reports: Diabetes, type II Oncologic: Reports: Ovarian, Uterine - Caffeine Use Caffeine Use: Reports: None ED ROS GENERAL - Review of Systems Review Of Systems: Comprehensive ROS is negative, except as noted in HPI. ED EXAM, GENERAL - Physical Exam Exam: See Below Course - Vital Signs Last Recorded V/S: Last Vital Signs Temp 97.3 F 02/27/21 15:39 Pulse 68 02/27/21 19:10 Resp 18 02/27/21 19:10 BP 106/63 02/27/21 19:10 Pulse Ox 97 02/27/21 19:10 - Orders/Labs/Meds Labs: Laboratory Tests 02/27/21 02/27/21 Range/Units 15:43 17:10 Influenza Type A RNA NEGATIVE (NEGATIVE) Influenza Type B RNA NEGATIVE (NEGATIVE) SARS-CoV-2 RNA (MI) NEGATIVE (NEGATIVE) Group A Strep (PCR) NOT DETECTED (NOT DETECT) Departure - Departure Time of Disposition: 18:56 Disposition: Home, Self-Care 01 Condition: Good Clinical Impression: Viral pharyngitis - Discharge Information *PRESCRIPTION DRUG MONITORING PROGRAM REVIEWED*: Not Applicable *COPY OF PRESCRIPTION DRUG MONITORING REPORT IN PATIENT VIRGIL: Not Applicable Instructions: Pharyngitis, [id number] Referrals: Maria Fernanda Farris NP [Primary Care Provider] - Forms: ED Department Discharge Additional Instructions: The following information is given to patients seen in the emergency department who are being discharged to home. This information is to outline your options for follow-up care. We provide all patients seen in our emergency department with a follow-up referral. The need for follow-up, as well as the timing and circumstances, are variable depending upon the specifics of your emergency department visit. If you don't have a primary care physician on staff, we will provide you with a referral. We always advise you to contact your personal physician following an emergency department visit to inform them of the circumstance of the visit and for follow-up with them and/or the need for any referrals to a consulting specialist. The emergency department will also refer you to a specialist when appropriate. This referral assures that you have the opportunity for follow-up care with a specialist. All of these measure are taken in an effort to provide you with optimal care, which includes your follow-up. Under all circumstances we always encourage you to contact your private physician who remains a resource for coordinating your care. When calling for follow-up care, please make the office aware that this follow-up is from your recent emergency room visit. If for any reason you are refused follow-up, please contact the [facility] Emergency Department at and asked to speak to the emergency department charge nurse. Gideon Javier [facility] [address] [place] [address] [facility] [address] [place] [address] Plan: 1. You were evaluated today on an emergent basis. Your complaints of a sore throat was evaluated with a strep swab which was negative. We then did a Covid/flu swab which was also negative. You most likely have a viral pharyngitis. You can treat your sore throat with okid-duj-uiyfwwo remedies such as throat spray, lozenges, or tea with honey. As we talked about if you do develop a fever and can tolerate and allow your body to have the fever as this is fighting the viral illness. If you get to where you get a hoarse hot potato voice or you develop shortness of breath or your symptoms become worse please return to the emergency department. 2. You can alternate Tylenol and ibuprofen as needed for pain and fever management. 3. We encourage you to follow up with your primary care provider and/or recommended specialist in the next few days for re-evaluation and further care/management. 4. If your symptoms should worsen, new symptoms develop or any of the signs and symptoms we discussed should arise please return to the emergency room or call 911 (if needed). Sepsis Event Note (ED) - Focused Exam Vital Signs: Vital Signs Temp Pulse Resp BP Pulse Ox 02/27/21 19:10 68 18 106/63 97 02/27/21 15:39 97.3 F 69 16 115/60 98
[2021-02-27 18:08] LABS: CORONAVIRUS COVID-19 NAA NEGATIVE (NEGATIVE)
[2021-02-27 18:51] LABS: INFLUENZA A NAA NEGATIVE (NEGATIVE); INFLUENZA B NAA NEGATIVE (NEGATIVE)
[2021-02-27 19:50] VITALS: BP 106/63; PULSE 68
== END 2021-02-27 19:12 | disposition home or self-care (01) ==
LOC: MW.ED 15:31
DX: J02.8 Acute pharyngitis due to other specified organisms (principal); B97.89 Other viral agents as the cause of diseases classified elsewhere; Z20.822 Contact with and (suspected) exposure to COVID-19
CPT/HCPCS: 0240U; 87651; 99284

== ENCOUNTER 2021-09-16 19:13 | Emergency (ER) | payer MEDICAID, OTHER ==
[2021-09-16] MEDS ORDERED: Ibuprofen 600 MG Tab PO ONE (21:58)
[2021-09-17 02:37] VITALS: BP 116/66; PULSE 80
== END 2021-09-16 23:40 | disposition home or self-care (01) ==
LOC: MW.ED 19:13
DX: S92.355A Nondisplaced fracture of fifth metatarsal bone, left foot, initial encounter for closed fracture (principal); Z88.6 Allergy status to analgesic agent; Z90.49 Acquired absence of other specified parts of digestive tract; W18.39XA Other fall on same level, initial encounter
CPT/HCPCS: 73610; 73630; 99283; A9270

== ENCOUNTER 2023-07-19 19:38 | Emergency (ER) | payer MEDICAID, OTHER ==
[2023-07-19] MEDS: Metoclopramide 10 MG/2 ML SDV IVPUSH STA (20:34)
[2023-07-19] MEDS: diphenhydrAMINE 50 MG/ML SDV IVPUSH STA (20:34)
[2023-07-19] MEDS: Sodium Chloride 0.9% 1,000 ML IV STA (20:35)
[2023-07-19] MEDS: Sodium Chloride 0.9% 2.5 ML Syringe FLUSH PRN (20:35)
[2023-07-19] MEDS: Sodium Chloride 0.9% 10 ML Syringe FLUSH PRN (20:35)
[2023-07-19 20:52] LABS: BASOPHILS ABSOLUTE AUTO 0.05 K/uL (0.00-0.20); BASOPHILS PERCENT AUTO 0.6 % (0.0-1.0); EOSINOPHILS ABSOLUTE AUTO 0.14 K/uL (0.00-0.45); EOSINOPHILS PERCENT AUTO 1.6 % (0.0-6.0); HEMATOCRIT 36.4 % (37.0-47.0); HEMOGLOBIN 12.1 g/dL (12.0-16.0); IMMATURE GRAN ABSOLUTE AUTO 0.02 K/uL (0.00-0.05); IMMATURE GRAN PERCENT AUTO 0.2 % (0.0-0.4); LYMPHOCYTES ABSOLUTE AUTO 2.04 K/uL (1.00-4.80); LYMPHOCYTES PERCENT AUTO 23.1 % (24.0-44.0); MEAN CORPUSCULAR HEMOGLOBIN 27.9 pg (28.0-32.0); MEAN CORPUSCULAR HGB CONC 33.2 g/dL (32.0-36.0); MEAN CORPUSCULAR VOLUME 83.9 fL (83.0-99.0); MONOCYTES ABSOLUTE AUTO 0.51 K/uL (0.00-0.80); MONOCYTES PERCENT AUTO 5.8 % (0.0-8.0); NEUTROPHILS ABSOLUTE AUTO 6.06 K/uL (1.80-7.70); NEUTROPHILS PERCENT AUTO 68.7 % (41.0-71.0); PLATELET COUNT,PLT 339 K/uL (150-400); RED BLOOD CELL COUNT 4.34 M/uL (4.10-5.30); WHITE BLOOD CELL COUNT,WBC 8.82 K/uL (3.9-11.3)
[2023-07-19 21:29] LABS: A/G RATIO 0.8 (0.9-1.6); ALBUMIN 3.5 g/dL (3.4-5.0); BILIRUBIN TOTAL 0.4 mg/dL (0.2-1.0); CALCIUM 8.8 mg/dL (8.5-10.1); CARBON DIOXIDE,CO2 22.9 mmol/L (21.0-32.0); CREATININE 0.8 mg/dL (0.6-1.0); EST CRCL DRUG DOSING (CG) 89.26 mL/min; POTASSIUM,K 3.8 mmol/L (3.5-5.1); PROTEIN TOTAL,TP 7.8 g/dL (6.4-8.2)
[2023-07-19] MEDS: Ketorolac 30 MG/ML SDV IVPUSH STA (21:32)
[2023-07-19] MEDS: Magnesium Sulfate/Water 2 GM in Premix Bag 1 BAG IV STA (21:32)
[2023-07-19 22:32] VITALS: BP 120/67; PULSE 56
== END 2023-07-19 22:30 | disposition home or self-care (01) ==
LOC: MW.ED 19:38
DX: R51.9 Headache, unspecified (principal); R55 Syncope and collapse; Z75.8 Other problems related to medical facilities and other health care; Z88.6 Allergy status to analgesic agent; Z88.8 Allergy status to other drugs, medicaments and biological substances; Z86.19 Personal history of other infectious and parasitic diseases
CPT/HCPCS: 36415; 80053; 84703; 85025; 93005; 96361; 96365; 96375; 99284; J1200; J1885; J2765; J3475; J3490; J7030; 93010